=== PATIENT | female | born 1945 | race African-American/Black ===

== ENCOUNTER 2018-08-16 13:46 | Emergency (ER) | payer MEDICARE, OTHER ==
[~2018-08-16] VITALS: Ht 165.1 cm; Wt 68.0 kg
[2018-08-16 13:56] VITALS: BP 153/69
[2018-08-16] MEDS ORDERED: HYDROcodone/APAP 5/325MG 1 TAB TABLET PO ONE (14:30)
[2018-08-16] MEDS ORDERED: ACETAMINOPHEN 500 MG TABLET PO ONE (14:45)
--- NOTE | 2018-08-16 14:50 | RAD ---
Exam performed : 3 views right elbow and 3 views right shoulder. Indication: Patient slipped and fell on Friday, lead of the elbow complaining of elbow and shoulder pain since then Date of Service: 08/16/2018 Comparison: None available Discussion: AP, oblique and lateral radiographs of the elbow reveal the osseous structures to be intact and well aligned. The joint space is well-preserved. Evidence of fracture or dislocation is not seen. AP, lateral and oblique views of the right elbow are obtained. Normal alignment is preserved. There is no acute fracture or dislocation. No soft tissue swelling or foreign body seen. Impression: No acute findings seen in the right elbow or right shoulder. Electronically signed by: Eugenia Worthy MD (08/16/2018 2:46 PM) [facility]
--- NOTE | 2018-08-16 14:59 | PHYS DOC ---
Past Medical History Past Medical History: CHF Past Surgical History: No Surgical History Alcohol Use: None Drug Use: None Adult General Chief Complaint Chief Complaint: UPPER EXTREMITY INJURY HPI HPI Patient is a 73 year old [f__sex] who presents with [] Review of Systems Review of Systems Constitutional: Denies fever or chills [] Eyes: Denies change in visual acuity, redness, or eye pain [] HENT: Denies nasal congestion or sore throat [] Respiratory: Denies cough or shortness of breath [] Cardiovascular: No additional information not addressed in HPI [] GI: Denies abdominal pain, nausea, vomiting, bloody stools or diarrhea [] : Denies dysuria or hematuria [] Musculoskeletal: Denies back pain or joint pain [] Integument: Denies rash or skin lesions [] Neurologic: Denies headache, focal weakness or sensory changes [] Endocrine: Denies polyuria or polydipsia [] All other systems were reviewed and found to be within normal limits, except as documented in this note. Current Medications Current Medications Current Medications Medications (Trade) Dose Ordered Sig/Taurus Start Time Stop Time Status Last Admin Dose Admin Acetaminophen (Tylenol) 500 mg 1X ONCE 08/16/18 14:45 08/16/18 14:46 DC 08/16/18 14:53 500 MG Acetaminophen/ Hydrocodone Bitart (Lortab 5/325) 1 tab 1X ONCE 08/16/18 14:30 08/16/18 14:41 DC Allergies Allergies Allergies Coded Allergies Type Severity Reaction Last Updated Verified No Known Drug Allergies 08/16/18 No Physical Exam Physical Exam Constitutional: Well developed, well nourished, no acute distress, non-toxic appearance. [] HENT: Normocephalic, atraumatic, bilateral external ears normal, oropharynx moist, no oral exudates, nose normal. [] Eyes: PERRLA, EOMI, conjunctiva normal, no discharge. [] Neck: Normal range of motion, no tenderness, supple, no stridor. [] Cardiovascular:Heart rate regular rhythm, no murmur [] Lungs & Thorax: Bilateral breath sounds clear to auscultation [] Abdomen: Bowel sounds normal, soft, no tenderness, no masses, no pulsatile masses. [] Skin: Warm, dry, no erythema, no rash. [] Back: No tenderness, no CVA tenderness. [] Extremities: No tenderness, no cyanosis, no clubbing, ROM intact, no edema. [] Neurologic: Alert and oriented X 3, normal motor function, normal sensory function, no focal deficits noted. [] Psychologic: Affect normal, judgement normal, mood normal. [] Current Patient Data Vital Signs Vital Signs Date Time Temp Pulse Resp B/P (MAP) Pulse Ox O2 Delivery O2 Flow Rate FiO2 08/16/18 13:56 98.4 65 20 153/69 (97) 97 Room Air 98.4 EKG EKG [] Radiology/Procedures Radiology/Procedures PROCEDURE: SHOULDER 2+V RIGHT Exam performed : 3 views right elbow and 3 views right shoulder. Indication: Patient slipped and fell on Friday, lead of the elbow complaining of elbow and shoulder pain since then Date of Service: 08/16/2018 Comparison: None available Discussion: AP, oblique and lateral radiographs of the elbow reveal the osseous structures to be intact and well aligned. The joint space is well-preserved. Evidence of fracture or dislocation is not seen. AP, lateral and oblique views of the right elbow are obtained. Normal alignment is preserved. There is no acute fracture or dislocation. No soft tissue swelling or foreign body seen. Impression: No acute findings seen in the right elbow or right shoulder. [] Course & Med Decision Making Course & Med Decision Making Pertinent Labs and Imaging studies reviewed. (See chart for details) [] Dragon Disclaimer Dragon Disclaimer This electronic medical record was generated, in whole or in part, using a voice recognition dictation system. Departure Departure Impression: Primary Impression: Right shoulder injury Additional Impressions: Right shoulder pain Right elbow pain Contusion of right elbow, initial encounter Fall Disposition: 01 HOME, SELF-CARE Condition: STABLE Referrals: CESAR AYOUB MD Patient Instructions: Elbow Contusion, [id number], Fall Prevention and Home Safety, [id number], Shoulder Pain, [id number] Additional Instructions: Tylenol as needed for pain. Recommend application of ice, elevation, and rest of affected extremity. Wear the sling that was placed as needed for comfort. Follow-up with your primary care doctor or Dr. Ayoub if symptoms persist. Return to the ER if your symptoms worsen. Problem Qualifiers Primary Impression: Right shoulder injury Encounter type: initial encounter Qualified Codes: S49.91XA - Unspecified injury of right shoulder and upper arm, initial encounter Additional Impressions: Right shoulder pain Chronicity: acute Qualified Codes: M25.511 - Pain in right shoulder Fall Encounter type: initial encounter Qualified Codes: W19.XXXA - Unspecified fall, initial encounter KWAME LITTLEJOHN APRN Aug 16, 2018 14:59
== END 2018-08-16 15:05 | disposition home or self-care (01) ==
LOC: ER 13:46
DX: S50.01XA Contusion of right elbow, initial encounter (principal); S49.91XA Unspecified injury of right shoulder and upper arm, initial encounter; Z86.79 Personal history of other diseases of the circulatory system; W01.0XXA Fall on same level from slipping, tripping and stumbling without subsequent striking against object, initial encounter; Y93.89 Activity, other specified; Y92.89 Other specified places as the place of occurrence of the external cause; Y99.8 Other external cause status
CPT/HCPCS: 73030; 73080; 99284